=== PATIENT | male | born 1965 | race African-American/Black ===

== ENCOUNTER 2018-03-13 03:17 | Emergency (ER) | payer MEDICAID, OTHER ==
[~2018-03-13] VITALS: Ht 190.5 cm; Wt 113.4 kg
[~2018-03-13 03:17] MED LIST: ALBUTEROL SULF8.5 GM INH; MEDROL DOSEPAK4 MG ORAL
[2018-03-13 03:30] VITALS: BP 154/98
[2018-03-13] MEDS ORDERED: GABAPENTIN300 MG ORAL (03:44)
[2018-03-13] MEDS ORDERED: Norco 5mg/325mg tab ORAL ONE (03:45)
--- NOTE | 2018-03-13 03:45 | Emergency Room Report ---
History of Present Illness General Chief Complaint: Pain Source: Patient Present Illness HPI Is a 52-year-old male with no past medical history. He presents with chief complaint of pain. He has multiple pain complaint. His main complaint is that he has right leg pain has been on and off for years. Initially pain was going down his leg. He went to the ER by urine half ago and x-ray was negative. Since then adamantly he will get pain down the lateral aspect of his leg. Sharp in nature. Burning in nature. He also complaining of right flank pain has been on and off for several weeks. This is not associated with his leg pain. He said he felt something in there. Denies any weight loss. Denies any hematuria. Denies any fever or chills. He also complaining of right arm pain intermittently also. Again no trauma. Pain is 7 out of 10. It got worse tonight and so he came in. Denies any other complaint. Allergies: Coded Allergies: No Known Allergies (Unverified , 06/16/15) Patient History Past Medical History: see triage record, old chart reviewed Past Surgical History: none Pertinent Family History: none Social History: Reports: smoking Immunizations: other Reviewed Nursing Documentation: PMH: Agreed; PSxH: Agreed Nursing Documentation-PMH Past Medical History: No History, Except For Hx Hypertension: Yes Review of Systems Eye: Denies: eye pain, blurred vision ENT: Denies: ear pain, nose congestion, throat swelling Respiratory: Denies: cough, shortness of breath Cardiovascular: Denies: chest pain, palpitations Gastrointestinal: Reports: abdominal pain; Denies: diarrhea, nausea, vomiting Musculoskeletal: Reports: back pain, joint pain Skin: Denies: rash Neurological: Denies: headache, numbness Endocrine: Denies: increased thirst, increased urine Hematologic/Lymphatic: Denies: easy bruising All Other Systems: negative except mentioned in HPI Physical Exam Vital Signs Date Time Temp Pulse Resp B/P (MAP) Pulse Ox O2 Delivery O2 Flow Rate FiO2 03/13/18 03:23 97.5 59 14 155/104 99 Room Air vitals with high blood pressure Sp02 EP Interpretation: reviewed, normal General Appearance: well appearing, no apparent distress, alert Head: normocephalic, atraumatic Eyes: bilateral eye PERRL, bilateral eye EOMI ENT: hearing grossly normal, normal pharynx Neck: full range of motion, supple, no meningismus Respiratory: chest non-tender, lungs clear, normal breath sounds Cardiovascular #1: regular rate, rhythm, no murmur Gastrointestinal: normal bowel sounds, non tender, no mass, no organomegaly, no bruit, non-distended Musculoskeletal: back normal, gait/station normal, normal range of motion Psychiatric: mood/affect normal Skin: warm/dry Medical Decision Making Diagnostic Impression: Primary Impression: Sciatica of right side Additional Impressions: Arm pain, right Hypertension Qualified Codes: I10 - Essential (primary) hypertension ER Course Patient presents with multiple pain complaint. Exam is benign. No evidence of cauda equina syndrome, spinal after abscess or neoplastic process. His abdominal exam is completely benign. No pain. No mass. We'll discharge home. He may need an MRI of his back. He will need follow-up with his doctor for blood pressure follow-up. I see no need for emergent x-rays or diagnostic study. Last Vital Signs Date Time Temp Pulse Resp B/P (MAP) Pulse Ox O2 Delivery O2 Flow Rate FiO2 03/13/18 03:30 97.6 71 17 154/98 99 Room Air Status: unchanged Disposition: HOME, SELF-CARE Condition: Stable Scripts Gabapentin* (GABAPENTIN*) 300 Mg Capsule 300 MG ORAL BEDTIME, #30 CAP Prov: Gustavo Molina MD 03/13/18 Additional Instructions: Follow-up your doctor in 7 days. You will need recheck on your blood pressure. You may benefit from an MRI of your back and neck to check for degenerative changes and or herniated disc. Since you are over 50, recommend screening colonoscopy. This is done as an outpatient. Her doctor can refer you to a GI doctor. Gustavo Molina MD Mar 13, 2018 03:45
[2018-03-13 04:16] LABS: BILIRUBIN, URINE NEGATIVE (NEGATIVE); COLOR,URINE PALE YELLOW; GLUCOSE, URINE (UA) NEGATIVE (NEGATIVE); KETONES,URINE NEGATIVE (NEGATIVE); LEUKOCYTE ESTERASE ,URINE 1+ (NEGATIVE); NITRITE,URINE NEGATIVE (NEGATIVE); PH,URINE 5 (4.5-8.0); PROTEIN,URINE NEGATIVE (NEGATIVE); UROBILINOGEN,URINE NORMAL MG/DL (0.0-1.0)
[2018-03-13 04:48] LABS: APPEARANCE,URINE CLEAR
[2018-03-13 05:57] VITALS: BP 154/98
--- NOTE | 2018-03-13 08:31 | Diagnostic Imaging Report ---
Indication: Abdominal pain and flank pain for 3 days Technique: Spiral acquisitions obtained through the abdomen and pelvis. No oral contrast utilized, per emergency room physician request No IV contrast utilized, per referring physician request.. Multiplanar reconstructions were generated. Total dose length product 978 mGycm. CTDIvol(s) 18 mGy. Dose reduction achieved using automated exposure control Comparison: None Findings: At least 4 calculi are seen in the right renal collecting system. The largest of these is in the lower pole and measures approximately 6 mm long axis dimension. At least 4 calculi are seen in the left renal collecting system. Largest of these is in the lower pole measures 14 cm long axis dimension. No definite ureteral calculi are demonstrated. No bladder calculi. The bladder is nondistended. Lack of IV contrast limits assessment of the renal parenchyma. There is a 1.5 cm cyst in the lower pole of the right kidney and another in the interpolar region. The left kidney demonstrates at least one subcentimeter low-attenuation lesion which is too small to characterize. Lack of IV contrast limits assessment of the other solid organs. The gallbladder is nondistended. The liver, bile ducts, pancreas, spleen, adrenals are all unremarkable. No retroperitoneal or mesenteric mass or adenopathy. No pelvic mass or adenopathy. The appendix is normal. There is colonic diverticulosis. No evidence of diverticulitis. No small bowel distention. No free or loculated intraperitoneal gas or fluid. The distal esophagus, stomach, duodenum are unremarkable. The included lung bases demonstrate minimal posterior dependent atelectatic changes. The bones are unremarkable. Impression: Bilateral nephrolithiasis. Negative for evidence of ureteral calculi or obstructive uropathy Right renal cyst. Left renal low-attenuation lesion or lesions, too small to characterize, most likely benign simple cysts. No further follow-up necessary Colonic diverticulosis. No evidence of diverticulitis Dependent pulmonary parenchymal atelectatic changes bilaterally. This agrees with the preliminary interpretation provided overnight by [facility] teleradiology service. The CT scanner at [facility] is accredited by the [employer] and the scans are performed using protocols designed to limit radiation exposure to as low as reasonably achievable to attain images of sufficient resolution adequate for diagnostic evaluation.
== END 2018-03-13 05:57 | disposition home or self-care (01) ==
LOC: EMR 03:56
DX: M54.31 Sciatica, right side (principal); M79.601 Pain in right arm; I10 Essential (primary) hypertension; F17.200 Nicotine dependence, unspecified, uncomplicated; K57.30 Diverticulosis of large intestine without perforation or abscess without bleeding; N20.0 Calculus of kidney; N28.1 Cyst of kidney, acquired
CPT/HCPCS: 74176; 81003; 99284

== ENCOUNTER 2018-08-31 | Emergency (ER) | payer MEDICAID ==
[~2018-08-31] VITALS: Ht 190.5 cm; Wt 106.1 kg
[~2018-08-31] MED LIST changes: +GABAPENTIN300 MG ORAL
[2018-08-31] MEDS ORDERED: LISINOPRIL20 MG ORAL (00:24)
[2018-08-31 00:28] VITALS: BP 148/91
--- NOTE | 2018-08-31 00:28 | NUR ---
ED Nurse Note: Pt arrived ED from home, c/o left hand pain 7/10 and swollen today after playing with friend by hiting each other. Pt is A/O X 4. Vital signs stable at this time, waiting for orders.
[2018-08-31] MEDS ORDERED: Cephalexin 500mg cap ORAL ONE (00:45)
[2018-08-31] MEDS ORDERED: Bacitracin Oint UD TOPIC ONE (00:45)
[2018-08-31 01:28] LABS: APPEARANCE,URINE CLEAR; BILIRUBIN, URINE NEGATIVE (NEGATIVE); COLOR,URINE PALE YELLOW; GLUCOSE, URINE (UA) NEGATIVE (NEGATIVE); KETONES,URINE NEGATIVE (NEGATIVE); LEUKOCYTE ESTERASE ,URINE NEGATIVE (NEGATIVE); NITRITE,URINE NEGATIVE (NEGATIVE); PH,URINE 5 (4.5-8.0); PROTEIN,URINE 3+ (NEGATIVE); UROBILINOGEN,URINE NORMAL MG/DL (0.0-1.0)
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
[2018-08-31] MEDS ORDERED: CEPHALEXIN500 MG ORAL (03:01)
[2018-08-31] MEDS ORDERED: TRAMADOL HCL50 MG ORAL (03:01)
[2018-08-31] MEDS ORDERED: IBUPROFEN600 MG ORAL (03:01)
[2018-08-31] MEDS ORDERED: BACITRACIN15 GM TOPIC (03:01)
[2018-08-31 03:09] VITALS: BP 144/86
--- NOTE | 2018-08-31 03:09 | NUR ---
ER DISCHARGE NOTE: Patient is cleared to be discharged per Dr. Salomon. X-ray done, there was fracture on left hand. Plaster applied to left hand. arm slin applied. Pt is aox4 on room air with stable vital signs. Pt was given dc and prescription instructions, pt was able to verbalize understanding. Pt's ID band removed. Pt is able to ambulate with steady gait and took all belongings.
--- NOTE | 2018-08-31 04:22 | Diagnostic Imaging Report ---
EXAM: XR Right Shoulder Complete, 2 or More Views CLINICAL HISTORY: PAIN TECHNIQUE: Two or more views of the right shoulder. COMPARISON: No relevant prior studies available. FINDINGS: Bones/joints: Mild AC joint arthrosis. Osteopenia. Possible superior humeral head subluxation, which could represent rotator cuff injury. Normal anatomic variant coracoclavicular joint, of uncertain clinical significance. No acute fracture. Soft tissues: Unremarkable. IMPRESSION: 1. No acute abnormality. 2. Mild AC joint arthrosis. 3. Osteopenia. 4. Possible superior humeral head subluxation, which could represent rotator cuff injury. 5. Normal anatomic variant coracoclavicular joint, of uncertain clinical significance.
== END 2018-08-31 03:09 | disposition home or self-care (01) ==
LOC: EMR 01:25
DX: S62.351A Nondisplaced fracture of shaft of second metacarpal bone, left hand, initial encounter for closed fracture (principal); S46.911A Strain of unspecified muscle, fascia and tendon at shoulder and upper arm level, right arm, initial encounter; R10.9 Unspecified abdominal pain; S61.412A Laceration without foreign body of left hand, initial encounter; W50.3XXD Accidental bite by another person, subsequent encounter; Y92.9 Unspecified place or not applicable; I10 Essential (primary) hypertension; M19.011 Primary osteoarthritis, right shoulder; M85.811 Other specified disorders of bone density and structure, right shoulder
CPT/HCPCS: 29130; 81001; 99284

== ENCOUNTER 2019-11-25 16:26 | Inpatient (IN) | payer MEDICAID ==
[~2019-11-25 16:26] MED LIST changes: +BACITRACIN15 GM TOPIC; +CEPHALEXIN500 MG ORAL; +IBUPROFEN600 MG ORAL; +LISINOPRIL20 MG ORAL; +TRAMADOL HCL50 MG ORAL
[2019-11-25] MEDS ORDERED: Omnipaque-300 100ml vial INJ PRN (16:45)
[2019-11-25] MEDS ORDERED: Ketorolac 30mg Inj IV ONE (16:45)
[2019-11-25] MEDS ORDERED: Morphine Sulfate 2mg/ml Inj(IV/IM USE ONLY) IVP ONE (17:15)
[2019-11-25] MEDS ORDERED: cefTRIAXone 1 GM in NS 55 ML IVPB ONE (20:45)
[2019-11-26] MEDS ORDERED: Morphine Sulfate 4mg/ml Inj (IV USE ONLY) IVP PRN (02:30)
[2019-11-26] MEDS ORDERED: AMLODIPINE BESY10 MG ORAL (02:32)
[2019-11-26] MEDS ORDERED: HYDROmorphone 1mg/ml Carpuject IVP PRN (04:00)
== END 2019-11-26 19:50 | disposition left against medical advice (07) | DRG 463 ==
DX: N13.6 Pyonephrosis (principal); N17.9 Acute kidney failure, unspecified; R31.9 Hematuria, unspecified